=== PATIENT | male | born 1945 | race Caucasian/White ===

== ENCOUNTER 2018-03-30 17:07 | Inpatient (IN) | payer MEDICARE, OTHER ==
[~2018-03-30] VITALS: Ht 177.8 cm; Wt 108.9 kg
[~2018-03-30 17:07] MED LIST changes: -ANTIVERT25 MG PO; -BENTYL 10 MG CA10 M1 PO; -CIPRO500 MG PO; -FLAGYL500 MG PO; -HYDROCHLOROTH12.5 M1 PO; -SIMVASTATIN40 MG PO
[2018-03-30 17:18] VITALS: BP 141/71
[2018-03-30] MEDS ORDERED: SIMVASTATIN40 MG PO (17:26)
[2018-03-30] MEDS ORDERED: HYDROCHLOROTH12.5 M1 PO (17:26)
[2018-03-30 17:38] LABS: ABSOLUTE BASOPHILS 0.1 thou/uL (0.0-0.2); ABSOLUTE EOSINOPHILS 0.2 thou/uL (0.0-0.7); ABSOLUTE LYMPHOCYTES 1.3 thou/uL (0.8-5.3); ABSOLUTE MONOCYTES 0.8 thou/uL (0.0-1.2); ABSOLUTE NEUTROPHILS 10.8 thou/uL (1.6-8.1); EOSINOPHILS 1.8 %; HEMATOCRIT 44.9 % (42.0-52.0); HEMOGLOBIN 15.2 gm/dL (14.0-18.0); MCH 32.5 pg (26.0-34.0); MCHC 33.8 g/dL (28.0-37.0); MCV 96.3 fL (80.0-100.0); MONOCYTES 6.2 %; MPV 8.4 fl. (7.2-11.1); NUCLEATED RBCS 0 /100WBC; PLATELET COUNT* 164 thou/uL (150-400); RBC 4.66 mil/uL (4.50-6.00); RDW-CV 12.5 % (10.5-14.5); WBC 13.4 thou/uL (4.0-11.0)
[2018-03-30 17:45] LABS: CALCIUM 8.3 mg/dL (8.5-10.1); CREATININE 1.2 mg/dL (0.6-1.3); INR 1.1; POTASSIUM 3.1 mmol/L (3.5-5.1); PROTIME 10.3 Seconds (9.20-11.50)
[2018-03-30 17:50] LABS: ALBUMIN 3.7 g/dL (3.4-5.0); TOTAL BILIRUBIN 0.5 mg/dL (<0.1-1.0); TOTAL PROTEIN 6.8 g/dL (6.4-8.2)
[2018-03-30 19:56] VITALS: BP 146/75
[2018-03-30 20:25] VITALS: BP 142/80
[2018-03-31 04:51] LABS: HEMATOCRIT 42.3 % (42.0-52.0); HEMOGLOBIN 14.3 gm/dL (14.0-18.0); MCH 32.8 pg (26.0-34.0); MCHC 33.8 g/dL (28.0-37.0); MCV 96.9 fL (80.0-100.0); MPV 8.7 fl. (7.2-11.1); RBC 4.36 mil/uL (4.50-6.00); WBC 10.3 thou/uL (4.0-11.0)
[2018-03-31 05:14] LABS: CALCIUM 7.8 mg/dL (8.5-10.1); CREATININE 1.2 mg/dL (0.6-1.3); MAGNESIUM 1.6 mg/dL (1.8-2.4); POTASSIUM 3.5 mmol/L (3.5-5.1)
--- NOTE | 2018-03-31 06:00 | NUR ---
PATIENT ARRIVED TO UNIT AT 2024 FROM THE ER. ALERT AND ORIENTED X 4. VITALS STABLE. ORIENTED TO ROOM AND STAFF. FLUIDS INFUSING PER ORDER. TOLERATING CLEAR LIQUID DIET. DENIES THE NEED FOR PAIN MEDICATION. DENIES NAUSEA. UP SBA DUE TO DIZZINESS. EDUCATED ABOUT FALL PREVENTION. SLEPT COMFORTABLY THROUGH THE NIGHT. HOURLY ROUNDS. NURSING WILL CONTINUE TO MONITOR.
[2018-03-31 07:54] VITALS: BP 107/61
--- NOTE | 2018-03-31 16:16 | NUR ---
P.T. ORDERS RECEIVED. CHART REVIEWED. EVAL COMPLETED. FULL DOCUMENTATION TO FOLLOW.
--- NOTE | 2018-03-31 16:58 | NUR ---
ASSUMED CARE OF PATIENT AFTER MORINING REPORT. ALERT AND ORIENTED X4. ASSESSMENT COMPLETED AND CHARTED. VSS ON ROOM AIR. PATIENT HAS HAD NO COMPLAINTS OF PAIN, NAUSEA, OR SOA. FLUIDS AND ANTIBIOTICS INFUSED ORDERED. GI IS FOLLOWING AND IS ADVANCING DIET TOLERATED. PATIENTS HAS BEEN AT BEDSIDE THROUGHOUT THE SHIFT. HOURLY ROUNDS MAINTAINED, CALL LIGHT WITHIN REACH, NURSING WILL CONTINUE TO MONITOR.
[2018-03-31 17:24] VITALS: BP 112/66
[2018-03-31 20:20] VITALS: BP 111/69
[2018-04-01 04:01] LABS: HEMATOCRIT 39.1 % (42.0-52.0); HEMOGLOBIN 13.3 gm/dL (14.0-18.0); MCH 32.9 pg (26.0-34.0); MCHC 34.1 g/dL (28.0-37.0); MCV 96.3 fL (80.0-100.0); MPV 8.4 fl. (7.2-11.1); RBC 4.05 mil/uL (4.50-6.00)
[2018-04-01 04:10] LABS: CALCIUM 7.4 mg/dL (8.5-10.1); CREATININE 1.2 mg/dL (0.6-1.3); MAGNESIUM 1.6 mg/dL (1.8-2.4); POTASSIUM 3.5 mmol/L (3.5-5.1)
--- NOTE | 2018-04-01 05:26 | NUR ---
PATIENT ALERT AND ORIENTED X 4. VITALS STABLE. RA. UP SBA TO BATHROOM. NO LOOSE STOOLS DURING MY SHIFT. FLUIDS INFUSING PER ORDER. DENIES PAIN AND NAUSEA. SLEPT COMFORTABLY DURING THE NIGHT. HOURLY ROUNDS. BED ALARM IN USE. NURSING WILL CONTINUE TO MONITOR.
[2018-04-01] MEDS ORDERED: CIPRO500 MG PO (07:40)
[2018-04-01] MEDS ORDERED: BENTYL 10 MG CA10 M1 PO (07:40)
[2018-04-01] MEDS ORDERED: FLAGYL500 MG PO (07:40)
[2018-04-01] MEDS ORDERED: ANTIVERT25 MG PO (07:40)
[2018-04-01 07:42] VITALS: BP 133/72
--- NOTE | 2018-04-01 07:45 | NUR ---
NO C/O PAIN. PT DENIES DIZZINESS. PT UP TO BR AND NO C/O DIZZINESS.
[2018-04-01 11:21] VITALS: BP 133/72
--- NOTE | 2018-04-01 12:03 | NUR ---
DISCHARGE ORDERS RECEIVED. ALL CONSULTS OKAY WITH DISCHARGE. IV TAKEN OFF. CARE NOTES PRINTED AND PT AND SPOUSE EDUCATED ON NEW MEDICATIONS. PT EDUCATED TO F/U WITH GI IN 2 WEEKS PER ORDERS OF GI. ALL BELONGINGS PACKED UP AND LEFT WITH PT.
--- NOTE | 2018-04-05 07:43 | CON ---
[facility] [address] [place] [address] CONSULTATION Name: DIAMOND CHANDLER Room: [address] IN .R.#: [id number] Admission: 03/30/18 Attend Phys: Enoc Alarcon MD Discharge: 04/01/18 Date of : 49 Report #: [id number] THIS REPORT FOR: //name// CC: Zohaib Sol MD DICTATED BY: Lilibeth Pendleton [facility] DATE OF SERVICE: 03/31/2018 PRIMARY CARE PHYSICIAN: Logan Sol M.D. Please note at the time of this dictation, the patient was seen and physically examined by myself. REASON FOR CONSULTATION: Abdominal pain post-colonoscopy. HISTORY OF PRESENT ILLNESS: This is a 73-year-old male who yesterday underwent an EGD and a colonoscopy by Dr. Blackwood. EGD was essentially normal and his esophagus was dilated. Colonoscopy revealed removal of 10 polyps with the largest one at the cecum and having some sigmoid diverticulosis, path is still pending. Shortly after getting home, later on that day, he started developing some sharp abdominal pain in the lower quadrants. It became worse. He started to kind of chilling and shaking. He developed some nausea without any vomiting and felt he was having a lot of dizziness associated with this. The patient called the office and he was instructed because of his chilling that he may have developed a bacteremia and he was instructed to go to the Emergency Room for further evaluation. ALLERGIES: No known drug allergies. MEDICATIONS: From home include simvastatin, hydrochlorothiazide and Zestril. PAST MEDICAL HISTORY: Hypertension, hypercholesterolemia, history of melanoma, prostate cancer and colon polyps. PAST SURGICAL HISTORY: C-spine surgery with fusion, right knee, tonsillectomy, excision of the melanoma with lymph nodes and prostate removed. FAMILY HISTORY: Noncontributory. SOCIAL HISTORY: Denies any alcohol, tobacco or illegal drug use. REVIEW OF SYSTEMS: Twelve-point review of systems is essentially negative except what [place] [address] CONSULTATION Name: DIAMOND CHANDLER Room: [address]#: [id number] Admission: 03/30/18 Attend Phys: Enoc Alarcon MD Discharge: 04/01/18 Date of : 49 Report #: [id number] PHYSICAL EXAMINATION: VITAL SIGNS: Temperature 36.5, pulse 77, respirations 16 and blood pressure 107/61. HEART: Regular rate and rhythm. LUNGS: Clear. ABDOMEN: Soft. Positive bowel sounds in all 4 quadrants, which is very mild tenderness noted on the right lower quadrant area. LABORATORY DATA: Hemoglobin is 14.3, hematocrit 42.3, white count on admission was 13.1 and he is now 10.3 and platelets 156. Sodium 143, potassium 3.5, chloride 107, CO2 27, BUN is 11, creatinine 1.2, GFR is 60 and a glucose of 99. RADIOLOGICAL DATA: CT of the abdomen and pelvis showed some mild pericolonic fat stranding around the cecum and ascending colon with some mild wall thickening, but no perforation was noted. IMPRESSION: 1. Abdominal pain. 2. Chills. 3. Post-polypectomy syndrome. 4. Leukocytosis. 5. Some vertigo. PLAN: 1. We will increase his diet to a soft low-residue diet. 2. We will add some Bentyl 10 mg a.c. and at bedtime as needed. 3. Meclizine already on board for his vertigo. 4. Await blood culture results again tomorrow and he will need to go home on antibiotics, likely Cipro and Flagyl for another 5 days and he may need some Imodium as well and we will see if he responds to the Bentyl. Thank you for allowing us to participate in this patient's care. Please do not hesitate to call with any questions in regard to this consult. <ELECTRONICALLY SIGNED> By: Jean Blackwood DO 04/05/18 0743 1720 [id number] Blackwood DO /nt
--- NOTE | 2018-04-05 07:43 | CON ---
[address] [address] CONSULTATION Name: CHANDLERDIAMOND Maricel Room: [address] IN .R.#: [id number] Admission: 03/30/18 Attend Phys: Enoc Alarcon MD Discharge: 04/01/18 Date of : 49 Report #: [id number] THIS REPORT FOR: //name// CC: Zohaib Alarcon MD [facility] DATE OF SERVICE: 03/31/2018 Addendum REFERRING PHYSICIAN: Enoc Alarcon MD I have seen and examined the patient and agree with plans that have been outlined by our nurse practitioner, Lilibeth Pendleton. The patient underwent an uneventful colonoscopy with multiple polypectomy, but he did have a fairly large polyp within the cecum which was removed by saline-assisted polypectomy and heat. He then called with complaints of right lower quadrant pain, fevers and chills and I was concerned that he might have bacteremia and even a perforation. For this reason, I recommend he come to the Emergency Room to be evaluated and CT scan revealed evidence for thickening of his cecum and ascending colon compatible with post-polypectomy syndrome. This may be just a thermal injury. In any event, I have recommended he come to the hospital, be placed on antibiotics and be watched to make sure everything goes in a right direction. We also make sure he did not have any evidence for bacteremia. He will likely need to go home on a course of antibiotics for a short period of time and hopefully will be able to be discharged in the next day or two. I discussed these plans with the patient as well as his at the bedside and we will make further recommendations thereafter during the hospital course. <ELECTRONICALLY SIGNED> By: Jean Blackwood DO 04/05/18 0743 [id number] Blackwood DO /nt
== END 2018-04-01 11:58 | disposition home or self-care (01) | DRG 872 ==
LOC: M.ERS 17:07 → M.TBA-ER 19:24 → M.ORTHSURG 19:24
PROVIDERS: Emergency Medicine; ADMIT Internal Medicine
DX: A41.9 Sepsis, unspecified organism (principal); K52.9 Noninfective gastroenteritis and colitis, unspecified; I10 Essential (primary) hypertension; E78.00 Pure hypercholesterolemia, unspecified; H81.10 Benign paroxysmal vertigo, unspecified ear; K57.30 Diverticulosis of large intestine without perforation or abscess without bleeding; D72.829 Elevated white blood cell count, unspecified; E78.5 Hyperlipidemia, unspecified; E87.6 Hypokalemia; Z90.89 Acquired absence of other organs; Z98.1 Arthrodesis status; Z79.899 Other long term (current) drug therapy; Z85.46 Personal history of malignant neoplasm of prostate; Z85.820 Personal history of malignant melanoma of skin

== ENCOUNTER → 2018-03-30 | Outpatient (CLI) | payer MEDICARE, OTHER ==
[~2018-03-30] MED LIST: ANTIVERT25 MG PO; BENTYL 10 MG CA10 M1 PO; CIPRO500 MG PO; FLAGYL500 MG PO; HYDROCHLOROTH12.5 M1 PO; LOPRESSOR; PRINIVIL20 MG PO; SIMVASTATIN40 MG PO; TOPROL
== END ==
LOC: M.LAB 03:54
DX: Z01.812 Encounter for preprocedural laboratory examination (principal)